=== PATIENT | male | born 1980 | race Caucasian/White ===

== ENCOUNTER 2017-09-13 22:50 | Emergency (ER) | payer SELFPAY ==
[2017-09-13 22:56] VITALS: BP 118/69; PULSE 105; RESP 16; TEMP 97.8; O2SAT 96
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
[2017-09-14] MEDS ORDERED: TYLE325T PO (00:24)
[2017-09-14] MEDS ORDERED: LORazepam 1 MG TAB PO ONE (00:30)
[2017-09-14] MEDS ORDERED: KETOROLAC TROMETHAMINE 60 MG/2 ML (IM) VIAL IM ONE (00:30)
[2017-09-14] MEDS ORDERED: ONDANSETRON ODT 4 MG TAB PO ONE (00:30)
== END 2017-09-14 01:02 | disposition home or self-care (01) ==
LOC: NEPC 22:50
DX: S09.90XA Unspecified injury of head, initial encounter (principal); M79.631 Pain in right forearm; M54.9 Dorsalgia, unspecified; V17.4XXA Pedal cycle driver injured in collision with fixed or stationary object in traffic accident, initial encounter; Y93.55 Activity, bike riding
CPT/HCPCS: 70450; 72125; 72128; 72131; 73090; 73120; 96372; 99284; J1885